=== PATIENT | female | born 1965 | race Caucasian/White ===

== ENCOUNTER → 2021-02-03 | Outpatient (CLI) | payer OTHER | LOC: KOH-I 14:52 | DX: M79.672 Pain in left foot (principal); M79.671 Pain in right foot | CPT/HCPCS: 73630 ==

== ENCOUNTER → 2021-04-09 | Outpatient (CLI) | payer OTHER ==
[2021-04-09 14:22] LABS: HEMOGLOBIN 13.9 gm/dl (12.3-15.3); RED BLOOD COUNT 4.4 M/UL (4.00-5.10); WHITE BLOOD COUNT 6.7 K/UL (4.5-11.0)
[2021-04-09 21:14] LABS: BUN/CREATININE RATIO 15 (0-10)
[2021-04-10 11:14] LABS: ANTISTREPTOLYSIN O AB 80.9 IU/mL (0.0-200.0); COMPLEMENT C3, SERUM 89 mg/dL (82-167); COMPLEMENT C4, SERUM 15 mg/dL (12-38); RHEUMATOID ARTHRITIS FACTOR <10.0 IU/mL (0.0-13.9)
[2021-04-10 13:14] LABS: ANTI-DSDNA ANTIBODIES <1 IU/mL (0-9); ANTICHROMATIN ANTIBODIES <0.2 AI (0.0-0.9)
[2021-04-14 17:09] LABS: HLA B 27 DISEASE ASSOCIATION Negative (.)
== END ==
LOC: LAB 13:15
PROVIDERS: Podiatrist Foot & Ankle Surgery
DX: M19.91 Primary osteoarthritis, unspecified site (principal)
CPT/HCPCS: 80053; 81374; 84550; 85027; 85652; 86038; 86060; 86140; 86160; 86200; 86225; 86431

== ENCOUNTER → 2021-08-29 | Emergency (ER) | payer OTHER | END | disposition left against medical advice (07) | LOC: ER1 15:58 | DX: Z53.21 Procedure and treatment not carried out due to patient leaving prior to being seen by health care provider (principal) ==

== ENCOUNTER 2021-11-06 16:05 | Emergency (ER) | payer OTHER | END 2021-11-06 16:30 | disposition left against medical advice (07) | LOC: ER1 16:05 | DX: R07.9 Chest pain, unspecified (principal); I10 Essential (primary) hypertension; Z88.0 Allergy status to penicillin; Z87.891 Personal history of nicotine dependence | CPT/HCPCS: 99282 ==

== ENCOUNTER 2022-03-17 12:02 | Emergency (ER) | payer OTHER ==
[2022-03-17 13:22] LABS: HEMOGLOBIN 14.4 gm/dl (12.3-15.3); RED BLOOD COUNT 4.69 M/UL (4.00-5.10); WHITE BLOOD COUNT 12.6 K/UL (4.5-11.0)
[2022-03-17 13:46] LABS: BUN/CREATININE RATIO 23 (0-10)
[2022-03-17 15:01] LABS: ADENOVIRUS F 40/41 Not Detected (Negative); ASTROVIRUS Not Detected (Negative); CAMPYLOBACTER Not Detected (Negative); CRYPTOSPORIDIUM Not Detected (Negative); E.COLI 0157 Not Detected (Negative); ENTAMOEBA HISTOLYTICA Not Detected (Negative); ENTEROAGGREGATIVE E.COLI (EAEC Not Detected (Negative); ENTEROPATHOGENIC E.COLI (EPEC) Not Detected (Negative); ENTEROTOXIGENIC E.COLI (ETEC) Not Detected (Negative); GIARDIA LAMBLIA Not Detected (Negative); NOROVIRUS GI/GII Not Detected (Negative); PLESIOMONAS SHIGELLOIDES Not Detected (Negative); ROTOVIRUS A Not Detected (Negative); SALMONELLA Not Detected (Negative); SAPOVIRUS Not Detected (Negative); SHIG/ENTEROINVAS.ECOLI (EIEC) Not Detected (Negative); SHIGA-LIK TOX.PRO.E.COLI (STEC Not Detected (Negative); VIBRIO Not Detected (Negative); VIBRIO CHOLERAE Not Detected (Negative); YERSINIA ENTEROCOLITICA Not Detected (Negative)
[2022-03-17 16:32] LABS: CLOSTRIDIUM DIFFICILE TOX A/B Not Detected (Negative)
[2022-03-17] MEDS ORDERED: CIPROFLOXACIN500 M1 PO (17:35)
== END 2022-03-17 18:10 | disposition home or self-care (01) ==
LOC: ER1 12:02
PROVIDERS: Physician Assistant
DX: K52.9 Noninfective gastroenteritis and colitis, unspecified (principal); K92.2 Gastrointestinal hemorrhage, unspecified; E78.5 Hyperlipidemia, unspecified; I10 Essential (primary) hypertension; F17.290 Nicotine dependence, other tobacco product, uncomplicated; Z88.0 Allergy status to penicillin
CPT/HCPCS: 80053; 81001; 83690; 83735; 85025; 85652; 86140; 86850; 86900; 86901; 87507; 96374; 96375; 99284; C9113; J1885; Q0177; Q9967